=== PATIENT | female | born 1960 | race Caucasian/White ===

== ENCOUNTER → 2016-05-29 | Day surgery (SDC) | payer BC, OTHER ==
[~2016-05-29] MED LIST: ARTHRITIS PAIN650 M3 PO; BENTYL20 MG PO; BUTALB-APAP-CA1 EACH PO; CLEOCIN PO; DEXILANT60 MG PO; MULTI VITAMIN1 EACH PO; OMEPRAZOLE20 M1 PO; TOVIAZ4 MG PO; VIBERZI100 MG PO; [UNRECOGNIZED DRUG - OTHER] PO
--- NOTE | ~2016-05-29 | OR ---
Unit #: [id number] #: [id number] Patient: LORI RANDHAWA [id number] [address] [place], [place] [address] [id number] MR#: [id number] NAME: LORI RANDHAWA. ROOM: Date of Procedure: 05/29/2016 Admission Date: 05/29/2016 Surgeon: Bryan Carrero M.D. : 1960 Attending Physician: Bryan Carrero M.D. Referring Physician: Bryan Carrero M.D. Primary Care Physician: Georgiana Hussein M.D. OPERATIVE REPORT PROCEDURES PERFORMED Esophagogastroduodenoscopy with biopsy, colonoscopy with biopsy, colonoscopy with snare polypectomy. INDICATIONS FOR PROCEDURE The patient with abdominal pain, persistent nausea, vomiting, chronic diarrhea, also with reflux symptoms, undergoing evaluation with upper endoscopy and colonoscopy. MEDICATIONS Monitored anesthesia. POSTOPERATIVE FINDINGS 1. Small hiatal hernia. 2. Several ulcers in distal esophagus, not at GE junction. Biopsies taken from ulcer edges. 3. Gastritis, diffuse, mild. No ulcers seen as before. Biopsies taken. 4. Normal duodenum and distal duodenum. 5. Two polyps, sigmoid colon, 3 to 4 mm each, snared and sent for histopathology. 6. Rest of the colon exam to cecum was normal. Random biopsies taken. 7. Terminal ileum was normal. PLAN Symptomatic treatment for now. We will also check for celiac disease antibody. DESCRIPTION OF PROCEDURE The patient was explained of the procedure, risks, and benefits along with risks and benefits of anesthesia. She was brought to the endoscopy room. Propofol anesthesia was given. Bite block was placed. The scope was passed down the mouth into the esophagus, stomach, duodenum and distal duodenum. Findings as described. Biopsies taken. Gently, I pulled the scope out of the patient's mouth. At this time, she was turned around and repositioned for colonoscopy. Rectal exam was done, which was normal. Colonoscope was lubricated, passed up the rectum, advanced under direct vision all the way to the cecum. Cecum was identified by ileocecal valve and appendiceal orifice. At this point, I started to pull the scope out. Terminal ileum was intubated, shows normal mucosa. Colonic mucosa was normal. Two small polyps seen in sigmoid colon was snared and sent for histopathology. Unit #: [id number] #: [id number] Patient: LORI RANDHAWA Random biopsies were taken also. I retroflexed in the rectum, small hemorrhoids seen. Scope was gently pulled out. She tolerated it well. No major complications were seen. Dictated by... Luis Miguel Roman/mirna TD: 05/30/2016 04:02 JOB #: [id number] CC: Kathy Jesus M.D. OPERATIVE REPORT Page 1 of 1 X Bryan Carrero MD X PROCEDURE OPERATIVE NOTE
[2016-05-29 10:46] LABS: BASOPHIL% 0.5 % (0-2.5); EOSINOPHIL# 0.2 X10e3 (0-0.7); EOSINOPHIL% 2.3 % (0.0-7.0); HEMATOCRIT 44.8 % (35.0-45.0); HEMOGLOBIN 14.7 gm/dL (12.0-16.0); LYMPHOCYTE# 1.5 X10e3 (1.0-3.5); LYMPHOCYTE% 16.2 % (17.0-45.0); MEAN CELL VOLUME 93.8 FL (83-96); MEAN CORPUSCULAR HEMOGLOBIN 30.8 PG (28-34); MEAN CORPUSCULAR HGB CONC 32.8 g/dL (30-36); MEAN PLATELET VOLUME 9.5 FL (6.5-11.5); MONOCYTE# 0.5 X10e3 (0-1.0); MONOCYTE% 5.2 % (3.0-12.0); NEUTROPHIL# 7.2 X10e3 (1.5-7.1); NEUTROPHIL% 75.8 % (40-75); PLATELET COUNT 157 X10e3 (140-420); RED BLOOD COUNT 4.77 X10e (3.90-5.30); RED CELL DISTRIBUTION WIDTH 13.7 % (11.0-15.5); WHITE BLOOD COUNT 9.5 X10e3 (4.0-10.5)
[2016-05-29 10:53] LABS: DIFF IND NO
[2016-05-29 11:16] LABS: ALBUMIN SERUM 3.7 g/dL (3.5-5.0); BILIRUBIN,TOTAL 0.6 mg/dL (0.2-2.0); BUN/CREATININE RATIO 11.42; CALCIUM SERUM 8.9 mg/dL (8.4-10.2); CREATININE SERUM 0.7 mg/dL (0.6-1.4); GLOM FILT RATE Estimated 98.9 mL/min (>60); POTASSIUM 4.6 mmol/L (3.5-5.1); PROTEIN TOTAL SERUM 6.1 g/dL (6.0-8.3)
[2016-06-02 23:19] LABS: GLIADIN IGA AB 5 Units (<20); GLIADIN IGG AB 4 Units (<20); RETICULIN IGA SCREEN W/REFLEX Negative (Negative); TISSUE TRANSGLUTAMINASE IGA AB 1 U/mL (<4)
== END | disposition home or self-care (01) ==
LOC: COPS 07:33
PROVIDERS: Internal Medicine
DX: D12.5 Benign neoplasm of sigmoid colon (principal); K29.50 Unspecified chronic gastritis without bleeding; K22.10 Ulcer of esophagus without bleeding; K44.9 Diaphragmatic hernia without obstruction or gangrene; K64.9 Unspecified hemorrhoids; K58.9 Irritable bowel syndrome, unspecified; F17.210 Nicotine dependence, cigarettes, uncomplicated; Z88.0 Allergy status to penicillin; Z79.2 Long term (current) use of antibiotics; Z79.899 Other long term (current) drug therapy; Z98.51 Tubal ligation status; Z98.890 Other specified postprocedural states
CPT/HCPCS: 80053; 83516; 85025; 86140; 86255; 88305; 88312; J2250